=== PATIENT | female | born 1955 | race Caucasian/White ===

== ENCOUNTER → 2024-06-23 12:26 | Outpatient (CLI) | payer MEDICARE, SELFPAY ==
--- NOTE | 2024-06-23 12:29 | DI.ECHO.S_ITS ---
[facility] : : [id number] : : [facility] : : [place], : : [place] [address] : : Phone: [phone] Echocardiogram Report + + :Name: MISSY FUENTES Study Date: 06/23/2024 Height: 70 in : :[facility] ReadingLocation: Weight: 150 lb : : Gender: Female BSA: 1.8 m2 : :: 1955 Age: 68 yrs BP: 126/79 mmHg: :Reason For Study: MITRALVALVE REGURGITATION, MVP : :Ordering Physician: CLINT, : :LOCO Performed By: Zach Zelaya : :Referring: LOCO MORSE : + + Interpretation Summary Tehcnically difficult study due to breast implants. 1) Normal left ventricular thickness, size, wall motion, and systolic function (EF 60-65%). 2) Normal right ventricular size and function. 3) Mild bileaflet mitral valve prolapse present. 4) There is mild mitral regurgitation. 5) The right ventricular systolic pressure is estimated to be at least 42 mmHg based on an estimated right atrial pressure of 8 mm Hg. 6) Compared to the Echo done 06/29/2023, mitral regurgitation has improved from moderate to mild on this study anish compared visually. Procedure: A two-dimensional transthoracic echocardiogram with color flow and Doppler was performed. The study quality was technically adequate. Comparison is made with the echocardiogram of 06/29/2023. The patient was in normal sinus rhythm during the exam. Left Ventricle: The left ventricle is normal in size. There is normal left ventricular wall thickness. There is no ventricular septal defect visualized. The ejection fraction is estimated to be 60-65%. There are no focal wall motion abnormalities. Diastolic parameters suggest probable normal left ventricular diastolic function and normal filling pressures. Right Ventricle: The right ventricle is normal in size and function. Atria: The left atrium is moderately dilated. The right atrium is mildly dilated. There is no Doppler evidence for an atrial septal defect. Mitral Valve: The mitral valve leaflets appear mildly thickened, but open well. There is mild mitral valve prolapse. There is mild mitral regurgitation. Aortic Valve: The aortic valve is trileaflet. The aortic valve opens well. The aortic valve is slightly calcified. There is no aortic valve stenosis. There is trace aortic regurgitation. Tricuspid Valve: The tricuspid valve is normal in structure and function. There is mild tricuspid regurgitation. The right ventricular systolic pressure is estimated to be at least 42 mmHg based on an estimated right atrial pressure of 8 mm Hg. Pulmonic Valve: The pulmonic valve is normal in structure and function. There is trace pulmonic regurgitation. Great Vessels: The aortic root is normal size. The dimensions of the ascending aorta are normal. The pulmonary artery is normal size. The IVC is dilated (diameter is greater than 2.1 cm) yet it collapses greater than 50% with a sniff. This suggests a right atrial pressure of 8 mm Hg. Pericardium/ Pleura There is no pericardial effusion. There is no pleural effusion. MMode/2D Measurements & Calculations LVIDd: 4.5 cm AoV Openin.1 cm LVIDs: 3.1 cm LVOT diam: 2.2 cm IVSd: 0.97 cm Ao root diam: 3.5 cm LVPWd: 1.0 cm asc Aorta Diam: 3.5 cm LV barrientos. diameter/BSA (cm/m^2): 2.4 LV sys. diameter/BSA (cm/m^2): 1.7 FS: 31.0 % EPSS: 0.49 cm LA A2 area: 24.8 cm2 RA long axis: 5.5 cm LA A4 area: 18.4 cm2 RA area: 17.2 cm2 LA length (vol): 4.7 cm RA vol: 46.0 ml LA vol: 81.9 ml RA : 24.9 ml/m2 LA vol index: 44.3 ml/m2 RVD1 (basal): 3.2 cm IVC diam: 2.2 cm RVD2 (mid): 2.5 cm TAPSE: 2.7 cm Doppler Measurements & Calculations Ao V2 max: 111.4 cm/sec LVOT Max Dylon: 73.0 cm/sec Ao V2 mean: 75.9 cm/sec LV V1 max P.1 mmHg Ao V2 VTI: 23.1 cm LV V1 VTI: 20.8 cm Ao max P.0 mmHg Ao mean P.5 mmHg RAE(I,D): 3.3 cm2 MV E max dylon: 60.7 cm/sec RAE(V,D): 2.4 cm2 MV A max dylon: 49.4 cm/sec RAE indexed to BSA (cm^2/m^2): 1.8 MV E/A: 1.2 sev ratio: 0.90 Med Peak E' Dylon: 8.5 cm/sec E/E' med: 7.2 Lat Peak E' Dylon: 8.3 cm/sec E/E' lat: 7.3 E/e' average: 7.2 MV dec time: 0.20 sec TR max dylon: 289.5 cm/sec TR max P.6 mmHg PA V2 max: 72.9 cm/sec SV(LVOT): 75.9 ml PA V2 mean: 52.9 cm/sec PA mean P.2 mmHg PA pr(Accel): 36.2 mmHg Reading Physician:09:26 AM
== END ==
PROVIDERS: Referring Provider Internal Medicine Cardiovascular Disease; Visit Provider Internal Medicine Cardiovascular Disease
DX: I08.1 Rheumatic disorders of both mitral and tricuspid valves (principal)
CPT/HCPCS: 93306